=== PATIENT | male | born 1955 | race Caucasian/White ===

== ENCOUNTER 2019-07-21 21:25 | Emergency (ER) | payer MEDICARE, MEDICAID ==
[~2019-07-21] VITALS: Ht 172 cm; Wt 81.0 kg
[~2019-07-21 21:25] MED LIST: ALLP300T; ASP81CT; GBPN300C; HYDR-2997 PO; HYDR480S10 PO; LEVO750T6 PO; METO50TA7; MISO200T; NIAC125C3; OMG1KC; PIRO-9; PRM25T PO
[2019-07-21] MEDS ORDERED: DOXY100T2 PO (21:55)
--- NOTE | 2019-07-21 21:55 | ED Integumentary General ---
General Chief Complaint: Skin/Wound Problems Stated Complaint: HAD SKIN CANCER REMOVED OVER MONTH AGO/OPEN WOUNDS Nursing Triage Note: Pt ambulates to triage with concerns of open wounds on hands. Pt had 2 areas of skin Ca on both hands removed end of May. Pt states areas have been covered with dressing and neosporin since the surgery, up until today. Pt reports pain in both hands, been taking ibuprofen and tylenol for pain. Hands also appear to be swollen on arrival. Source: patient Exam Limitations: no limitations History of Present Illness Date Seen by Provider: Jul 21, 2019 Time Seen by Provider: 21:51 Initial Comments Patient had 2 areas of skin cancer to the dorsal aspect of each hand frozen off here in town about a month ago. He now has deeply ulcerated areas at the sites, hands have been swollen since the freezing. He is on Keflex, last dose today. No fevers or chills. Timing/Duration: just prior to arrival Severity: moderate Associated Symptoms: denies symptoms Allergies and Home Medications Allergies Coded Allergies: No Known Drug Allergies (Verified Allergy, Unknown, 10/18/08) Home Medications Chlorphenir/Hydrocod Polistir 5 Ml Susp, 5 ML PO Q12H PRN COUGH - DISP# 150ML Prescribed by: CHUCHO SANCHEZ MD on 10/15/09254 Hydrocodone Bit/Acetaminophen 1 Tab Tablet, 1 EACH PO Q 4 - 6 HRS PRN Prescribed by: CHUCHO SANCHEZ MD on 10/06/091805 Levofloxacin 750 Mg Tablet, 750 MG PO DAILY Prescribed by: CHUCHO SANCHEZ MD on 10/15/09254 Promethazine Hcl 25 Mg Tablet, 1 TAB PO QID Prescribed by: CHUCHO SANCHEZ MD on 10/06/091805 Patient Home Medication List Home Medication List Reviewed: Yes Review of Systems Review of Systems Constitutional: see HPI EENTM: see HPI Respiratory: no symptoms reported Cardiovascular: no symptoms reported Genitourinary: no symptoms reported Musculoskeletal: no symptoms reported Skin: see HPI Psychiatric/Neurological: No Symptoms Reported Endocrine: No Symptoms Reported Past Unnkakt-Kbpmrc-Mpkwjj Hx Patient Social History Recent Foreign Travel: No Contact w/Someone Who Travel: No Recent Infectious Disease Expo: No Past Medical History Reproductive Disorders: No Physical Exam Vital Signs Vital Signs - First Documented 07/21/19 21:37 Temp 36.7 Pulse 63 Resp 18 B/P (MAP) 169/99 (122) O2 Delivery Room Air Capillary Refill : Less Than 3 Seconds General Appearance: WD/WN, no apparent distress HEENT: PERRL/EOMI, normal ENT inspection Neurologic/Psychiatric: alert, normal mood/affect, oriented x 3 Skin: normal color, warm/dry Skin Problem Location: other (there are 2 circular areas to the dorsal aspect of each hand measuring about 1-2 cm in diameter, well demarcated with minimal surrounding erythema, they do have a moist base, there about 2-3 mm deep, whitish eschar at the base of these.) Progress/Results/Core Measures Results/Orders My Orders Orders - BEATRIZ ROJO APRN Wound Culture (07/21/19 21:50) Vital Signs/I&O 07/21/19 21:37 Temp 36.7 Pulse 63 Resp 18 B/P (MAP) 169/99 (122) O2 Delivery Room Air Blood Pressure Mean: 122 Departure Communication (Admissions) L Keflex has not improved his symptoms, we'll add doxycycline for MRSA coverage though there is minimal redness, there is some swelling, due to the depth of these wounds this will probably take 1-2 months to heal. Impression Primary Impression: Wound infection Disposition: 01 HOME, SELF-CARE Condition: Stable Departure-Patient Inst. Decision time for Depature: 21:54 Referrals: CHRISTY MOREL MD, BENJAMEN H MD (PCP) Primary Care Physician Patient Instructions: Wound Infection Add. Discharge Instructions: 1. Expect this to heal within the next 1-2 months. As long as there is no significant redness and wouldn't be too alarmed. I would however keep them covered. It would be worth her time to make an appointment with wound care Dr. Morel, his number has been listed. All discharge instructions reviewed with patient and/or family. Voiced understanding. Scripts Doxycycline Hyclate (Doxycycline Hyclate) 100 Mg Tablet 100 MG PO BID, #14 TAB 0 Refills Prov: BEATRIZ ROJO APRN 07/21/19 BEATRIZ ROJO APRN Jul 21, 2019 21:55
[2019-07-21 22:00] VITALS: BP 169/99
== END 2019-07-21 22:00 | disposition home or self-care (01) ==
LOC: EDUNIT# 21:25 → ER 21:26
DX: T81.49XA Infection following a procedure, other surgical site, initial encounter (principal); Z85.828 Personal history of other malignant neoplasm of skin
CPT/HCPCS: 87070; 87205; 99282

== ENCOUNTER → 2019-07-25 | Outpatient (CLI) | payer MEDICARE, MEDICAID ==
[~2019-07-25] MED LIST changes: +DOXY100T2 PO
== END ==
LOC: WOUNDCARE 14:05
PROVIDERS: ATTEND Surgery
DX: L98.493 Non-pressure chronic ulcer of skin of other sites with necrosis of muscle (principal); T45.1X5A Adverse effect of antineoplastic and immunosuppressive drugs, initial encounter; I96 Gangrene, not elsewhere classified
CPT/HCPCS: 99215

== ENCOUNTER → 2019-08-01 | Outpatient (CLI) | payer MEDICARE, MEDICAID | LOC: WOUNDCARE 13:40 | PROVIDERS: ATTEND Surgery | DX: I96 Gangrene, not elsewhere classified (principal); L98.493 Non-pressure chronic ulcer of skin of other sites with necrosis of muscle; T45.1X5A Adverse effect of antineoplastic and immunosuppressive drugs, initial encounter | CPT/HCPCS: 99213 ==

== ENCOUNTER → 2019-08-08 | Outpatient (CLI) | payer MEDICARE, MEDICAID ==
[~2019-08-08] MED LIST changes: +DOXY100C42; +TRAM-42 PO
== END ==
LOC: WOUNDCARE 13:11
PROVIDERS: ATTEND Surgery
DX: L98.493 Non-pressure chronic ulcer of skin of other sites with necrosis of muscle (principal); T45.1X5A Adverse effect of antineoplastic and immunosuppressive drugs, initial encounter; I96 Gangrene, not elsewhere classified
CPT/HCPCS: 11042; 11043

== ENCOUNTER 2019-08-10 14:11 | Emergency (ER) | payer MEDICARE, MEDICAID ==
[~2019-08-10] VITALS: Ht 172.2 cm; Wt 81.8 kg
[~2019-08-10 14:11] MED LIST changes: -DOXY100C42; -TRAM-42 PO
--- NOTE | 2019-08-10 14:25 | ED Integumentary General ---
General Chief Complaint: Skin/Wound Problems Stated Complaint: L THUMB REDNESS/PAIN Source: patient Exam Limitations: no limitations History of Present Illness Date Seen by Provider: Aug 10, 2019 Time Seen by Provider: 14:23 Initial Comments To ER with reports of ongoing wounds to the dorsum of the left hand 1 over the distal aspect of the first metacarpal and one over roughly the third metacarpal. He comes in today because of increase in pain today and increase in redness since last night. He is currently on antibiotic but does not know which one. He was seen here on July 21 for this same issue, has followed with wound care weekly since then. This stems from excessive use topically of 5-fluorouracil Timing/Duration: constant, getting worse Severity: moderate Location: hands Associated Symptoms: other (increasing pain) Allergies and Home Medications Allergies Coded Allergies: No Known Drug Allergies (Verified , 10/18/08) Home Medications Chlorphenir/Hydrocod Polistir 5 Ml Susp, 5 ML PO Q12H PRN COUGH - DISP# 150ML Prescribed by: CHUCHO SANCHEZ MD on 10/15/09 0255 Doxycycline Hyclate 100 Mg Tablet, 100 MG PO BID Prescribed by: BEATRIZ ROJO on 07/21/19 2155 Hydrocodone Bit/Acetaminophen 1 Tab Tablet, 1 EACH PO Q 4 - 6 HRS PRN Prescribed by: CHUCHO SANCHEZ MD on 10/06/09 180 Promethazine Hcl 25 Mg Tablet, 1 TAB PO QID Prescribed by: CHUCHO SANCHEZ MD on 10/06/091805 Patient Home Medication List Home Medication List Reviewed: Yes Review of Systems Review of Systems Constitutional: see HPI EENTM: see HPI Respiratory: no symptoms reported Cardiovascular: no symptoms reported Genitourinary: no symptoms reported Musculoskeletal: no symptoms reported Skin: see HPI Psychiatric/Neurological: No Symptoms Reported Endocrine: No Symptoms Reported Hematologic/Lymphatic: No Symptoms Reported Past Vzpsxjb-Rqaemd-Akvsur Hx Patient Social History Type Used: Cigarettes Recent Foreign Travel: No Contact w/Someone Who Travel: No Recent Hopitalizations: No Seasonal Allergies Seasonal Allergies: No Past Medical History Surgeries: No Cardiac: Yes Hypertension Neurological: No Reproductive Disorders: No Sexually Transmitted Disease: No Gastrointestinal: No Musculoskeletal: Yes (GOUT) Endocrine: No Cancer: Yes (bilat hands ) Skin Integumentary: No Blood Disorders: No Physical Exam Vital Signs Vital Signs - First Documented 08/10/19 14:16 Temp 36.1 Pulse 78 Resp 18 B/P (MAP) 153/97 (115) Pulse Ox 98 O2 Delivery Room Air Capillary Refill : General Appearance: WD/WN, no apparent distress Neck: non-tender, full range of motion Respiratory: no respiratory distress, no accessory muscle use Neurologic/Psychiatric: alert, normal mood/affect Skin: normal color, warm/dry Skin Problem Location: other (ulcerated areas as mentioned in the history of present illness to the dorsum of the left hand. These have minimal surrounding erythema less than 1 cm. There is no obvious swelling. Wounds were unwrapped and there is a whitish fibrinous eschar overlying the wound bed. This will be debrided. We'll obtain an x-ray to evaluate for any gross osteomyelitis as most of his pain is in the thumb.) Progress/Results/Core Measures Results/Orders My Orders Orders - BEATRIZ ROJO APRN Lidocaine 4% Topical (Xylocaine Topical (08/10/19 14:30) Hand, Left, 3 Views (08/10/19 14:22) Tramadol Tablet (Ultram Tablet) (08/10/19 14:30) Medications Given in ED Current Medications Medications Dose Ordered Sig/Meryl Route Start Time Stop Time Status Last Admin Dose Admin Lidocaine HCl ONCE ONCE TP 08/10/19 14:30 08/10/19 14:31 DC 08/10/19 14:40 40 MG Tramadol HCl 50 mg ONCE ONCE PO 08/10/19 14:30 08/10/19 14:31 DC 08/10/19 14:39 50 MG Vital Signs/I&O 08/10/19 14:16 Temp 36.1 Pulse 78 Resp 18 B/P (MAP) 153/97 (115) Pulse Ox 98 O2 Delivery Room Air Departure Communication (Admissions) He had doxycycline filled this morning, I'll give him a prescription for antibiotics. We gently debrided the overlying eschar. This was redressed with gauze soaked in saline and a gauze roll and then a compression wrap. Impression Primary Impression: Open wound, hand Qualified Codes: S61.402A - Unspecified open wound of left hand, initial encounter Disposition: 01 HOME, SELF-CARE Condition: Stable Departure-Patient Inst. Decision time for Depature: 14:27 Referrals: MER SCHULTZ MD (PCP/Family) Primary Care Physician Patient Instructions: Wound Care (DC) Add. Discharge Instructions: 1. Continue with current treatment regimen return to ER for any concerns. All discharge instructions reviewed with patient and/or family. Voiced understanding. Scripts Tramadol HCl (Ultram) 50 Mg Tablet 50 MG PO Q6H PRN for PAIN-MODERATE, #10 TAB Prov: BEATRIZ ROJO APRN 08/10/19 BEATRIZ ROJO APRN Aug 10, 2019 14:25
[2019-08-10] MEDS ORDERED: LIDOCAINE TOPICAL 4% 50 ML BTL TP ONE (14:30)
[2019-08-10] MEDS ORDERED: DOXY100C42 (15:05)
--- NOTE | 2019-08-10 15:06 | Diagnostic Imaging Report ---
INDICATION: Left thumb pain. TIME OF EXAMINATION: 2:55 PM. TECHNIQUE: Three views of the left hand were obtained. FINDINGS: There are degenerative changes of the triscaphe and first CMC joints with joint space narrowing and marginal spurring. The visualized metacarpals appear to be intact. There are some degenerative changes involving multiple MCP and interphalangeal joints. No fractures are seen. No bony destructive changes are identified. IMPRESSION: Degenerative changes. No acute bony abnormality is detected. Dictated by: Dictated on workstation # [id number]
[2019-08-10] MEDS ORDERED: TRAM-42 PO (15:18)
[2019-08-10 15:25] VITALS: BP 150/97
== END 2019-08-10 15:26 | disposition home or self-care (01) ==
LOC: EDUNIT# 14:11 → ER 14:14
DX: S61.402A Unspecified open wound of left hand, initial encounter (principal); I10 Essential (primary) hypertension; M10.9 Gout, unspecified; Z85.828 Personal history of other malignant neoplasm of skin; X58.XXXA Exposure to other specified factors, initial encounter
CPT/HCPCS: 73130

== ENCOUNTER → 2019-08-15 | Outpatient (CLI) | payer MEDICARE, MEDICAID ==
[~2019-08-15] MED LIST changes: +DOXY100C42; +TRAM-42 PO
== END ==
LOC: WOUNDCARE 13:31
PROVIDERS: ATTEND Surgery
DX: I96 Gangrene, not elsewhere classified (principal); L98.493 Non-pressure chronic ulcer of skin of other sites with necrosis of muscle; L98.492 Non-pressure chronic ulcer of skin of other sites with fat layer exposed; T45.1X5A Adverse effect of antineoplastic and immunosuppressive drugs, initial encounter; M65.142 Other infective (teno)synovitis, left hand
CPT/HCPCS: 99214

== ENCOUNTER → 2019-08-16 | Outpatient (CLI) | payer MEDICARE, MEDICAID ==
[2019-08-16 13:25] LABS: BASOPHILS % (AUTO) 0 % (0-10); EOSINOPHILS % (AUTO) 0 % (0-10); HEMATOCRIT 45 % (40-54); HEMOGLOBIN 15.2 G/DL (13.3-17.7); LYMPHOCYTES # (AUTO) 1.2 X 10^3 (1.0-4.0); LYMPHOCYTES % (AUTO) 12 % (12-44); MEAN CORPUSCULAR HEMOGLOBIN 32 PG (25-34); MEAN CORPUSCULAR HGB CONC 34 G/DL (32-36); MEAN CORPUSCULAR VOLUME 95 FL (80-99); MEAN PLATELET VOLUME 9.3 FL (7.4-10.4); MONOCYTES % (AUTO) 10 % (0-12); NEUTROPHILS # (AUTO) 7.6 X 10^3 (1.8-7.8); NEUTROPHILS % (AUTO) 77 % (42-75); PLATELET COUNT 254 10^3/uL (130-400); WHITE BLOOD COUNT 9.9 10^3/uL (4.3-11.0)
[2019-08-16 13:45] LABS: ALANINE AMINOTRANSFERASE 12 U/L (0-55); ALKALINE PHOSPHATASE 107 U/L (40-136); BILIRUBIN,TOTAL 0.5 MG/DL (0.1-1.0); BUN/CREATININE RATIO 12; CALCIUM 9.2 MG/DL (8.5-10.1); CARBON DIOXIDE 28 MMOL/L (21-32); CHLORIDE 102 MMOL/L (98-107); GFR ESTIMATED > 60; GLUCOSE 154 MG/DL (70-105); POTASSIUM 3.5 MMOL/L (3.6-5.0); SODIUM 137 MMOL/L (135-145); TOTAL PROTEIN 6.8 GM/DL (6.4-8.2)
== END ==
LOC: LAB 13:08
PROVIDERS: ATTEND Surgery
DX: M65.142 Other infective (teno)synovitis, left hand (principal); L98.493 Non-pressure chronic ulcer of skin of other sites with necrosis of muscle; L98.492 Non-pressure chronic ulcer of skin of other sites with fat layer exposed; T45.1X5A Adverse effect of antineoplastic and immunosuppressive drugs, initial encounter; I96 Gangrene, not elsewhere classified
CPT/HCPCS: 36415; 80053; 85025

== ENCOUNTER → 2019-08-23 | Outpatient (CLI) | payer MEDICARE, MEDICAID | LOC: WOUNDCARE 13:07 | PROVIDERS: ATTEND Surgery | DX: M65.142 Other infective (teno)synovitis, left hand (principal); L98.493 Non-pressure chronic ulcer of skin of other sites with necrosis of muscle; L98.492 Non-pressure chronic ulcer of skin of other sites with fat layer exposed; T45.1X5A Adverse effect of antineoplastic and immunosuppressive drugs, initial encounter; I96 Gangrene, not elsewhere classified | CPT/HCPCS: 99213 ==

== ENCOUNTER → 2019-08-29 | Outpatient (CLI) | payer MEDICARE, MEDICAID | LOC: WOUNDCARE 13:05 | PROVIDERS: ATTEND Surgery | DX: I96 Gangrene, not elsewhere classified (principal); L98.493 Non-pressure chronic ulcer of skin of other sites with necrosis of muscle; L98.492 Non-pressure chronic ulcer of skin of other sites with fat layer exposed; M65.142 Other infective (teno)synovitis, left hand; T45.1X5A Adverse effect of antineoplastic and immunosuppressive drugs, initial encounter | CPT/HCPCS: 11043 ==

== ENCOUNTER → 2019-09-05 | Outpatient (CLI) | payer MEDICARE, MEDICAID | LOC: WOUNDCARE 14:09 | PROVIDERS: ATTEND Surgery | DX: I96 Gangrene, not elsewhere classified (principal); L98.492 Non-pressure chronic ulcer of skin of other sites with fat layer exposed; L98.493 Non-pressure chronic ulcer of skin of other sites with necrosis of muscle; M65.842 Other synovitis and tenosynovitis, left hand; T45.1X5A Adverse effect of antineoplastic and immunosuppressive drugs, initial encounter | CPT/HCPCS: 11043 ==

== ENCOUNTER → 2019-09-12 | Outpatient (CLI) | payer MEDICARE, MEDICAID | LOC: WOUNDCARE 08:10 | PROVIDERS: ATTEND Surgery | DX: L98.492 Non-pressure chronic ulcer of skin of other sites with fat layer exposed (principal); M65.842 Other synovitis and tenosynovitis, left hand; T45.1X5A Adverse effect of antineoplastic and immunosuppressive drugs, initial encounter; I96 Gangrene, not elsewhere classified | CPT/HCPCS: 11042 ==

== ENCOUNTER → 2019-09-19 | Outpatient (CLI) | payer MEDICARE, MEDICAID | LOC: WOUNDCARE 14:33 | PROVIDERS: ATTEND Surgery | DX: L98.492 Non-pressure chronic ulcer of skin of other sites with fat layer exposed (principal); M65.142 Other infective (teno)synovitis, left hand; T45.1X5A Adverse effect of antineoplastic and immunosuppressive drugs, initial encounter | CPT/HCPCS: 99212 ==

== ENCOUNTER 2019-10-28 09:51 | Emergency (ER) | payer MEDICARE, MEDICAID ==
[~2019-10-28] VITALS: Ht 172 cm; Wt 83.0 kg
[2019-10-28 10:04] VITALS: BP 152/97
[2019-10-28] MEDS ORDERED: TETANUS,DIPTH,PERTUSS P/F (BOOSTRIX) 0.5 ML VIAL IM ONE (10:15)
== END 2019-10-28 10:04 | disposition left against medical advice (07) ==
LOC: EDUNIT# 09:51 → ER 09:52
DX: S61.217A Laceration without foreign body of left little finger without damage to nail, initial encounter (principal); X58.XXXA Exposure to other specified factors, initial encounter
CPT/HCPCS: 99282

== ENCOUNTER → 2021-11-19 | Outpatient (CLI) | payer MEDICARE, MEDICAID ==
[~2021-11-19] MED LIST changes: +DOXY-311; -DOXY100C42
== END | disposition home or self-care (01) ==
LOC: PREOP 05:40
PROVIDERS: ATTEND Specialist
DX: Z01.818 Encounter for other preprocedural examination (principal)